=== PATIENT | male | born 1950 | race Caucasian/White ===

== ENCOUNTER 2022-11-02 09:38 | Inpatient (IN) | payer MEDICARE, OTHER ==
[~2022-11-02] VITALS: Ht 177.8 cm; Wt 117.7 kg
[2022-11-02] MEDS ORDERED: METFORMIN ER1000 M2 PO (10:32)
[2022-11-02] MEDS ORDERED: Ventolin/Prove6.7 GM INH (10:32)
[2022-11-02 10:54] LABS: Source, Urine Clean Catch
[2022-11-02 10:58] LABS: Bilirubin, Urine Neg (Neg); Blood, Urine Neg (Neg); Glucose Qualitative, Urine 4+ (Neg); Ketones, Urine 1+ (Neg); Leukocyte Esterase, Urine Neg (Neg); Nitrite, Urine Neg (Neg); Protein, Urine Neg (Neg); Urobilinogen, Urine NORM (Normal)
[2022-11-02 11:18] LABS: Appearance, Urine Clear (Clear); Color, Urine Yellow (P-Yellow)
[2022-11-02 11:19] LABS: BASOPHILS ABSOLUTE AUTO 0.05 K/mm3 (0.00-0.23); BASOPHILS PERCENT AUTO 1 % (0-2); EOSINOPHILS ABSOLUTE AUTO 0.12 K/mm3 (0.00-0.68); EOSINOPHILS PERCENT AUTO 2 % (0-6); Hematocrit 31.4 % (37.0-53.0); Hemoglobin 10.7 g/dL (13.5-17.5); IMMATURE GRAN ABSOLUTE AUTO 0.02 K/mm3 (0.00-0.10); IMMATURE GRAN PERCENT AUTO 0 % (0-1); LYMPHOCYTES ABSOLUTE AUTO 0.99 K/mm3 (0.84-5.20); LYMPHOCYTES PERCENT AUTO 19 % (21-46); MONOCYTES ABSOLUTE AUTO 0.38 K/mm3 (0.16-1.47); MONOCYTES PERCENT AUTO 8 % (4-13); Mean Corpuscular HGB Conc 34.1 g/dL (31.5-36.5); Mean Corpuscular Volume 91 fL (80-100); Mean Platelet Volume 11.2 fL (9.1-12.4); NEUTROPHILS ABSOLUTE AUTO 3.53 K/mm3 (1.96-9.15); NEUTROPHILS PERCENT AUTO 69 % (41-73); Platelet Count 224 K/mm3 (150-400); RDW Coefficient Variation 13.2 % (11.7-14.2); RDW Standard Deviation 43.8 fL (35.1-46.3); Red Blood Cell Count 3.45 M/mm3 (4.30-5.90); White Blood Cell Count 5.09 K/mm3 (4.00-11.30)
[2022-11-02 11:54] LABS: Albumin, Blood 3.6 g/dL (3.4-5.0); Albumin/Globulin Ratio 0.9 (0.8-1.8); Bilirubin, Total 0.7 mg/dL (0.1-1.0); Bun/Creatinine Ratio 23.7 (12.0-20.0); Calcium, Blood 9.5 mg/dL (8.5-10.1); Creatinine, Blood 1.69 mg/dL (0.60-1.20); Globulin, Blood 4.1 g/dL (2.2-4.0); Potassium, Blood 4.9 mmol/L (3.5-5.5); Total Protein, Blood 7.7 g/dL (6.4-8.2)
[2022-11-02 14:10] LABS: Glucose, Blood 845 mg/dL (70-99)
[2022-11-02 15:49] LABS: Glucose, Blood 725 mg/dL (70-99)
--- NOTE | 2022-11-02 15:58 | NUR ---
LATE ENTRY/ER ADMIT 1400: REPORT RECEIVED FROM CLEANING ASSOCIATE. 1424: RECEIVED PT FROM ER VIA ALYSE. PLACED IN BED MADE COMFORTABLE, ORIENTED TO ROOM & UNIT ROUTINE. VSS. BLOOD SUGAR DONE WITH RESULT OF HI ON GLUCOMETER. ORDERS TO GIVE 10 UNITS OF GLARGINE & 10 UNITS OF HUMALOG IS DONE. PRECINCT I POLICE SERGEANT IN ROOM 20 MINS LATER TO DRAW FOR GLUCOSE PER MD ORDER. PT A&O X 4. INDEPENDENT IN THE ROOM FOR RESTROOM USE. PT IS URINATING QUITE A BIT & IS QUITE THIRSTY. IS AT BEDSIDE. LAB CALLED WITH A CRITICAL GLUCOSE OF 725. LAB CALLED WITH A LATER CRITICAL GLUCOSE OF 660. BG'S ARE IMPROVING.
[2022-11-02 16:00] LABS: Albumin, Blood 3.6 g/dL (3.4-5.0); Anion Gap 4 mmol/L (6-16); Blood Urea Nitrogen 36 mg/dL (8-24); Bun/Creatinine Ratio 21.2 (12.0-20.0); CO2, Blood 29 mmol/L (21-32); Calcium, Blood 9.5 mg/dL (8.5-10.1); Chloride, Blood 89 mmol/L (98-108); Glomerular Filtration Rate 43 (60-); Glucose, Blood 660 mg/dL (70-99); Phosphorus, Blood 3.4 mg/dL (2.5-4.9); Sodium, Blood 122 mmol/L (136-145)
[2022-11-02] MEDS ORDERED: ATORVASTATIN CA80 M1 PO (16:13)
[2022-11-02] MEDS ORDERED: FUROSEMIDE40 MG PO (16:14)
[2022-11-02] MEDS ORDERED: LOSARTAN POTAS100 M1 PO (16:15)
[2022-11-02] MEDS ORDERED: ACTOS15 MG PO (16:16)
[2022-11-02 17:37] LABS: Glucose, Blood 551 mg/dL (70-99)
--- NOTE | 2022-11-02 18:10 | NUR ---
SHIFT SUMMARY PT'S BG'S REMAIN HIGH BUT ARE BEGINNING TO TREND DOWN. HAS RECEIVED A TOTAL OF 30 UNITS OF SUBQ HUMALOG. MIGHT BENEFIT FROM AN INCREASE IN GLARGINE AT NEXT DOSE. PT REMAINS A&O X 4. DENIES PAIN OR DISCOMFORT. IVF'S INFUSING PER EMAR. IS ON CONT BI-OX. PT'S OWN CPAP IN HIS ROOM. WILL WEAR AT NOC WITH 4 L'S O2 BLEED IN. APPETITE IS GOOD. IS AT BEDSIDE. CALL LIGHT IS WITHIN REACH.
[2022-11-02 21:09] LABS: Glucose, Blood 552 mg/dL (70-99)
[2022-11-03 05:31] LABS: BASOPHILS ABSOLUTE AUTO 0.04 K/mm3 (0.00-0.23); BASOPHILS PERCENT AUTO 1 % (0-2); EOSINOPHILS ABSOLUTE AUTO 0.14 K/mm3 (0.00-0.68); EOSINOPHILS PERCENT AUTO 3 % (0-6); Hematocrit 27.6 % (37.0-53.0); Hemoglobin 9.4 g/dL (13.5-17.5); IMMATURE GRAN ABSOLUTE AUTO 0.02 K/mm3 (0.00-0.10); IMMATURE GRAN PERCENT AUTO 0 % (0-1); LYMPHOCYTES ABSOLUTE AUTO 1.53 K/mm3 (0.84-5.20); LYMPHOCYTES PERCENT AUTO 28 % (21-46); MONOCYTES ABSOLUTE AUTO 0.46 K/mm3 (0.16-1.47); MONOCYTES PERCENT AUTO 8 % (4-13); Mean Corpuscular HGB 30.9 pg (26.0-34.0); Mean Corpuscular HGB Conc 34.1 g/dL (31.5-36.5); Mean Corpuscular Volume 91 fL (80-100); Mean Platelet Volume 10.7 fL (9.1-12.4); NEUTROPHILS ABSOLUTE AUTO 3.35 K/mm3 (1.96-9.15); NEUTROPHILS PERCENT AUTO 61 % (41-73); Platelet Count 211 K/mm3 (150-400); RDW Standard Deviation 42.4 fL (35.1-46.3); Red Blood Cell Count 3.04 M/mm3 (4.30-5.90); White Blood Cell Count 5.54 K/mm3 (4.00-11.30)
--- NOTE | 2022-11-03 05:34 | NUR ---
SHIFT SUMMARY PT SITTING UP TO SIDE OF BED DURING BEDSIDE REPORT- LINDSEY AT BEDSIDE- IV INFUSING WITHOUT PROBLEMS- CBG 552 AT 2000- CALL TO DR. PINTO- NEW ORDERS TO CHANGE TO HIGH SLIDE SCALE AND SCHEDULED HUMALOG IN ADDITION AT AC- SPOKE WITH PT RE: GIVING OWN INSULIN- EXPLAINED TO PT UNSURE IF HE WILL GO HOME WITH INSULIN - ENCOURAGED LEARING HOW TO GIVE OWN INSULIN - PT AGREED- PT SELF ADMINISTERED 2 DOSES T/O NIGHT OF HUMALOG- PT WORE CPAP T/O NIGHT
[2022-11-03 06:16] LABS: Albumin, Blood 3.1 g/dL (3.4-5.0); Anion Gap 5 mmol/L (6-16); Blood Urea Nitrogen 36 mg/dL (8-24); Bun/Creatinine Ratio 22.5 (12.0-20.0); CO2, Blood 28 mmol/L (21-32); Calcium, Blood 8.8 mg/dL (8.5-10.1); Chloride, Blood 96 mmol/L (98-108); Glomerular Filtration Rate 46 (60-); Glucose, Blood 349 mg/dL (70-99); Magnesium, Blood 2.3 mg/dL (1.6-2.4); Phosphorus, Blood 3.3 mg/dL (2.5-4.9); Potassium, Blood 3.4 mmol/L (3.5-5.5); Sodium, Blood 129 mmol/L (136-145)
--- NOTE | 2022-11-03 06:28 | NUR ---
SHIFT SUMMARY PT ADMITTED FROM ED - REPORT FROM [facility] RN- PT BROUGHT UP VIA WC-PT ABLE TO AMBULATE FROM CHAIR TO BED- PT STEADY ON FEET- ENCOURAGED PT TO CALL FOR ASSISTANCE TO BR- PT SET OFF BED ALARM - IV INFUSING WITHOUT PROBLEMS- SIGNIFICANT OTHER AT BEDSIDE
--- NOTE | 2022-11-03 10:28 | NUR ---
RESP PT IS ON RA DURING THE DAY. WEARS HIS OWN CPAP AT [facility] WITH 4 L O2 BLEED IN. IS ON CONT BI-OX WITH SATS >90%. USES A RESCUE INHALER PRN AND NEBS PER RT. HAS A HX OF COPD. IS A CURRENT SMOKER HOWEVER SMOKES ONLY 1-2 CIGS A DAY & WEARS A 21 MG NICOTENE PATCH.
--- NOTE | 2022-11-03 17:51 | NUR ---
SHIFT SUMMARY NO CLINICAL CHANGES TODAY. MD CONTINUING TO MONITOR BLOOD SUGARS AND ADJUST HIS INSULIN DOSING. BLOOD SUGARS HAVE YET TO DROP BELOW 300 MAJORITY OF THE TIME. APPETITE IS GOOD. HE STATES HE HAS NOT NEEDED TO UNRINATE NEARLY FREQUENTLY HE HAD BEEN. IVF'S CONTINUE TO RUN PER EMAR. PT IS INDEPENDENT IN THE ROOM FOR RESTROOM USE. GETS OUT OF BED ON HIS OWN TO THE CHAIR FOR MEALS. PT TAUGHT HOW TO INJECT, DISCUSSED INJECTION SITE ROTATION, INDICATIONS & ACTIONS OF INSULIN, INSULIN PEN NEEDLE MECHANISM & TO BE MINDFUL OF THE POSSIBILITY THAT HOME INSULIN PEN NEEDLES MAY HAVE 2 CAPS THAT NEED TO BE REMOVED BEFORE INJECTION. REVIEWED WITH HIM CONCEPT OF BASAL/BOLUS INSULIN & NUTRITION & CORRECTION COMPONENTS TO BOLUS INSULIN AT MEAL TIME. DISCUSSED BASIC DIABETES PATHOPHYSIOLOGY. PT WAS ATTENTIVE AND VERBALIZED UNDERSTANDING. PT PERFORMED A GOOD RETURN DEMO OF SELF INJECTION. PT CALLS APPROPRIATELY, MAKES NEEDS KNOWN. CALL LIGHT IS WITHIN REACH. PLAN IS FOR HOME ONCE BLOOD SUGAR CONTROL IS ESTABLISHED & MAINTAINED. PT IS PLEASANT & COOPERATIVE WITH ALL CARE.
[2022-11-04 06:16] LABS: BASOPHILS ABSOLUTE AUTO 0.02 K/mm3 (0.00-0.23); BASOPHILS PERCENT AUTO 1 % (0-2); EOSINOPHILS ABSOLUTE AUTO 0.13 K/mm3 (0.00-0.68); EOSINOPHILS PERCENT AUTO 3 % (0-6); Hematocrit 27.4 % (37.0-53.0); Hemoglobin 9.2 g/dL (13.5-17.5); IMMATURE GRAN ABSOLUTE AUTO 0.02 K/mm3 (0.00-0.10); IMMATURE GRAN PERCENT AUTO 1 % (0-1); LYMPHOCYTES ABSOLUTE AUTO 1.21 K/mm3 (0.84-5.20); LYMPHOCYTES PERCENT AUTO 31 % (21-46); MONOCYTES ABSOLUTE AUTO 0.32 K/mm3 (0.16-1.47); MONOCYTES PERCENT AUTO 8 % (4-13); Mean Corpuscular HGB Conc 33.6 g/dL (31.5-36.5); Mean Corpuscular Volume 92 fL (80-100); Mean Platelet Volume 10.8 fL (9.1-12.4); NEUTROPHILS ABSOLUTE AUTO 2.25 K/mm3 (1.96-9.15); NEUTROPHILS PERCENT AUTO 57 % (41-73); Platelet Count 201 K/mm3 (150-400); RDW Coefficient Variation 13.2 % (11.7-14.2); RDW Standard Deviation 43.8 fL (35.1-46.3); Red Blood Cell Count 2.97 M/mm3 (4.30-5.90); White Blood Cell Count 3.95 K/mm3 (4.00-11.30)
--- NOTE | 2022-11-04 06:29 | NUR ---
SUMMARY: NO ACUTE EVENTS OVERNIGHT. PATIENT AOX4. VSS. EDUCATION PROVIDED ON HOW TO ADMINISTER INSULIN. PATIENT SELF ADMINISTERED BEDTIME DOSE WITH RN SUPERVISION AFTER EDUCATION. CALL LIGHT IN REACH.
[2022-11-04 06:53] LABS: Anion Gap 7 mmol/L (6-16); Blood Urea Nitrogen 30 mg/dL (8-24); Bun/Creatinine Ratio 18.2 (12.0-20.0); CO2, Blood 26 mmol/L (21-32); Calcium, Blood 8.4 mg/dL (8.5-10.1); Chloride, Blood 97 mmol/L (98-108); Creatinine, Blood 1.65 mg/dL (0.60-1.20); Glomerular Filtration Rate 44 (60-); Glucose, Blood 408 mg/dL (70-99); Phosphorus, Blood 3.4 mg/dL (2.5-4.9); Potassium, Blood 3.8 mmol/L (3.5-5.5); Sodium, Blood 130 mmol/L (136-145)
--- NOTE | 2022-11-04 12:02 | NUR ---
CBG 397. NOTIFIED DR. LU, NO ADDITIONAL ISULIN ORDERED, ASKED THAT CBG BE RE CHECKED IN AN HOUR.
[2022-11-04] MEDS ORDERED: INSULANI SC (15:33)
[2022-11-04] MEDS ORDERED: HUMALOG KW100 UNIT/1 SC ×2 (15:34→15:36)
[2022-11-04] MEDS ORDERED: METO25ER PO (15:36)
--- NOTE | 2022-11-04 16:07 | NUR ---
PATIENT DISCHARGED TO HOME ACCOMPANIED BY . Stanley AN PROVIDED D/C INSTRUCTIONS. PT HAS BEEN INJECTING INSULIN WITH GOOD TECHNIQUE. OFF UNIT VIA W/C AT 1603.
== END 2022-11-04 16:06 | disposition home or self-care (01) | DRG 638 ==
LOC: ER 09:38 → MEDS 12:38
PROVIDERS: Student in an Organized Health Care Education/Training Program; ADMIT Family Medicine
DX: E11.65 Type 2 diabetes mellitus with hyperglycemia (principal); E87.1 Hypo-osmolality and hyponatremia; Z68.41 Body mass index [BMI] 40.0-44.9, adult; I13.0 Hypertensive heart and chronic kidney disease with heart failure and stage 1 through stage 4 chronic kidney disease, or unspecified chronic kidney disease; I50.32 Chronic diastolic (congestive) heart failure; Z91.14 Patient's other noncompliance with medication regimen; Z28.21 Immunization not carried out because of patient refusal; G47.33 Obstructive sleep apnea (adult) (pediatric); J44.9 Chronic obstructive pulmonary disease, unspecified; F17.210 Nicotine dependence, cigarettes, uncomplicated; E11.22 Type 2 diabetes mellitus with diabetic chronic kidney disease; E78.5 Hyperlipidemia, unspecified; E66.9 Obesity, unspecified; N18.30 Chronic kidney disease, stage 3 unspecified; D63.1 Anemia in chronic kidney disease; Z99.89 Dependence on other enabling machines and devices; Z99.81 Dependence on supplemental oxygen; Z88.0 Allergy status to penicillin; Z79.51 Long term (current) use of inhaled steroids; Z79.84 Long term (current) use of oral hypoglycemic drugs
CPT/HCPCS: 36415; 80053; 80069; 81003; 82947; 83036; 83735; 85025; 93005; 93010; 93306; 94640; 94660; 94664; 94762; 96360; 99285-25; A9270; J1644; J1815; J7030

== ENCOUNTER → 2024-12-09 | Day surgery (SDC) | payer MEDICARE, OTHER ==
[~2024-12-09] MED LIST: ACTOS15 MG PO; ATORVASTATIN CA80 M1 PO; FUROSEMIDE40 MG PO; HUMALOG KW100 UNIT/1 SC; INSULANI SC; LOSARTAN POTAS100 M1 PO; METFORMIN ER1000 M2 PO; METO25ER PO; Ventolin/Prove6.7 GM INH
== END ==
LOC: WOUND 03:46
DX: E11.622 Type 2 diabetes mellitus with other skin ulcer (principal); L97.222 Non-pressure chronic ulcer of left calf with fat layer exposed; L97.212 Non-pressure chronic ulcer of right calf with fat layer exposed; E11.51 Type 2 diabetes mellitus with diabetic peripheral angiopathy without gangrene; J44.9 Chronic obstructive pulmonary disease, unspecified; I13.0 Hypertensive heart and chronic kidney disease with heart failure and stage 1 through stage 4 chronic kidney disease, or unspecified chronic kidney disease; I50.9 Heart failure, unspecified; E11.22 Type 2 diabetes mellitus with diabetic chronic kidney disease; N18.9 Chronic kidney disease, unspecified
CPT/HCPCS: G0463

== ENCOUNTER 2024-12-19 05:12 | Day surgery (SDC) | payer MEDICARE, OTHER ==
[2024-12-19] MEDS ORDERED: Lidocaine HCl 4% Cream 5 GM ONE (14:33)
== END 2024-12-19 23:00 | disposition home or self-care (01) ==
LOC: WOUND 05:12
DX: E11.622 Type 2 diabetes mellitus with other skin ulcer (principal); L97.222 Non-pressure chronic ulcer of left calf with fat layer exposed; L97.212 Non-pressure chronic ulcer of right calf with fat layer exposed; E11.51 Type 2 diabetes mellitus with diabetic peripheral angiopathy without gangrene; E11.22 Type 2 diabetes mellitus with diabetic chronic kidney disease; I13.0 Hypertensive heart and chronic kidney disease with heart failure and stage 1 through stage 4 chronic kidney disease, or unspecified chronic kidney disease; N18.9 Chronic kidney disease, unspecified; I50.9 Heart failure, unspecified; J44.9 Chronic obstructive pulmonary disease, unspecified
CPT/HCPCS: A9270; G0463

== ENCOUNTER 2025-01-16 02:42 | Day surgery (SDC) | payer MEDICARE, OTHER | END 2025-01-16 23:00 | disposition home or self-care (01) | LOC: WOUND 02:42 | DX: E11.622 Type 2 diabetes mellitus with other skin ulcer (principal); I87.313 Chronic venous hypertension (idiopathic) with ulcer of bilateral lower extremity; L97.222 Non-pressure chronic ulcer of left calf with fat layer exposed; L97.811 Non-pressure chronic ulcer of other part of right lower leg limited to breakdown of skin; E11.51 Type 2 diabetes mellitus with diabetic peripheral angiopathy without gangrene; I87.2 Venous insufficiency (chronic) (peripheral); I13.0 Hypertensive heart and chronic kidney disease with heart failure and stage 1 through stage 4 chronic kidney disease, or unspecified chronic kidney disease; I50.9 Heart failure, unspecified; E11.22 Type 2 diabetes mellitus with diabetic chronic kidney disease; N18.9 Chronic kidney disease, unspecified | CPT/HCPCS: G0463 ==

== ENCOUNTER 2025-05-05 07:29 | Day surgery (SDC) | payer MEDICARE, OTHER ==
[~2025-05-05] VITALS: Ht 177.8 cm; Wt 134.7 kg
[~2025-05-05 07:29] MED LIST changes: +Balanced Salt Epinephrine Irrigation Solution 500 mL IR SCH; +Moxifloxacin HCL 0.5 MG/0.1 ML 0.4MLSYR RIGHTEYE SCH; +Ondansetron 4 MG SoluTab MM PRN; +PHENYLEPHRINE\\TROPICAMIDE\\TETRACAINE OPHTHALMIC DILATING SOLN RIGHTEYE PRN; +Povidone-Iodine 450 DROP/30 ML Solution ONE; +Povidone-Iodine 450 DROP/30 ML Solution RIGHTEYE SCH; +Tetracaine HCl/Pf 0.5% Opth Soln 4 ml ONE
--- NOTE | 2025-05-05 08:27 | NUR ---
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
--- NOTE | 2025-05-05 08:30 | NUR ---
05/05/25 0830 Kyung Infante TETRACAINE: [id number] MELISA: [id number]
--- NOTE | 2025-05-05 08:58 | NUR ---
05/05/25 0858 Heidi Fisher HR:78 RR:16 BP:112/63 SPO2:99% ON 10L BLOW BY O2
--- NOTE | 2025-05-05 09:12 | NUR ---
05/05/[address] AT BEDSIDE
[2025-05-05 09:15] VITALS: BP 129/75
== END 2025-05-05 09:30 | disposition home or self-care (01) ==
LOC: ORSCSDS 07:29
PROVIDERS: Student in an Organized Health Care Education/Training Program
PROC: 08RJ3JZ Replacement of Right Lens with Synthetic Substitute, Percutaneous Approach (ICD-10-PCS; principal; 2025-05-05 09:00)
DX: E11.36 Type 2 diabetes mellitus with diabetic cataract (principal); H25.813 Combined forms of age-related cataract, bilateral; I10 Essential (primary) hypertension; E78.2 Mixed hyperlipidemia; G47.33 Obstructive sleep apnea (adult) (pediatric); J44.9 Chronic obstructive pulmonary disease, unspecified; I50.9 Heart failure, unspecified; Z79.4 Long term (current) use of insulin; Z79.85 Long-term (current) use of injectable non-insulin antidiabetic drugs; Z79.899 Other long term (current) drug therapy; F17.210 Nicotine dependence, cigarettes, uncomplicated
CPT/HCPCS: A9270; V2632

== ENCOUNTER 2025-05-12 06:07 | Day surgery (SDC) | payer MEDICARE, OTHER ==
[~2025-05-12] VITALS: Ht 177.8 cm; Wt 137.1 kg
[~2025-05-12 06:07] MED LIST changes: +Moxifloxacin HCL 0.5 MG/0.1 ML 0.4MLSYR LEFTEYE SCH; -Moxifloxacin HCL 0.5 MG/0.1 ML 0.4MLSYR RIGHTEYE SCH; +PHENYLEPHRINE\\TROPICAMIDE\\TETRACAINE OPHTHALMIC DILATING SOLN LEFTEYE PRN; -PHENYLEPHRINE\\TROPICAMIDE\\TETRACAINE OPHTHALMIC DILATING SOLN RIGHTEYE PRN; +Povidone-Iodine 450 DROP/30 ML Solution LEFTEYE SCH; -Povidone-Iodine 450 DROP/30 ML Solution RIGHTEYE SCH
--- NOTE | 2025-05-12 06:45 | NUR ---
05/12/25 0645 Helio Hill CALL LIGHT WITHIN REACH.
[2025-05-12] MEDS ORDERED: Tetracaine HCl 0.5% Opth Soln 15 ml LEFTEYE ONE (07:29)
--- NOTE | 2025-05-12 07:34 | NUR ---
05/12/25 0734 Jony Boston N 134/79 20 100% 10L BLOW BY O2 87
[2025-05-12 07:48] VITALS: BP 111/61
== END 2025-05-12 08:01 | disposition home or self-care (01) ==
LOC: ORSCSDS 06:07
PROVIDERS: Student in an Organized Health Care Education/Training Program
PROC: 08RK3JZ Replacement of Left Lens with Synthetic Substitute, Percutaneous Approach (ICD-10-PCS; principal; 2025-05-12 07:30)
DX: E11.36 Type 2 diabetes mellitus with diabetic cataract (principal); H25.812 Combined forms of age-related cataract, left eye; Z96.1 Presence of intraocular lens; I10 Essential (primary) hypertension; E78.2 Mixed hyperlipidemia; G47.33 Obstructive sleep apnea (adult) (pediatric); J44.9 Chronic obstructive pulmonary disease, unspecified; I50.9 Heart failure, unspecified; Z79.4 Long term (current) use of insulin; Z79.85 Long-term (current) use of injectable non-insulin antidiabetic drugs; Z79.899 Other long term (current) drug therapy; F17.210 Nicotine dependence, cigarettes, uncomplicated
CPT/HCPCS: A9270; J2003; V2632